=== PATIENT | male | born 1970 | race Two or more races ===

== ENCOUNTER 2023-06-10 08:00 | Outpatient (CLI) | payer OTHER, SELFPAY ==
--- NOTE | 2023-06-10 08:15 | CRLHL7_ITS ---
For Patients: As a result of the Century Cures Act, medical imaging exams and procedure reports are released immediately into your electronic medical record. You may view this report before your referring provider. If you have questions, please contact your health care provider. Indication: Left hip pain Procedure : Informed consent was obtained. The site was marked. Time-out was performed. The skin of the left hip was cleansed with ChloraPrep. A sterile drape was placed. 8 cc of 1 percent lidocaine was administered for superficial anesthesia. Subsequently a 22 gauge spinal needle was introduced into the left hip joint under intermittent fluoroscopic guidance. 7 cc 1 percent lidocaine and 2 cc 40 milligram/cc Depo-Medrol then placed into the left hip joint. The needle was removed and hemostasis achieved with direct pressure. A dressing was placed. The patient tolerated the procedure well without immediate complication. Total fluoroscopy time 22 seconds. Impression: Successful fluoroscopically guided left hip injection with 80 milligrams of Depo-Medrol. Dictated by Nelson Lares MD @ 06/10/2023 2:21:50 PM (Electronically Signed)
== END 2023-06-10 08:01 | disposition home or self-care (01) ==
LOC: RAD 08:01
PROVIDERS: PCP Family Medicine; Visit Provider Physician Assistant Surgical
DX: M25.552 Pain in left hip (principal); M16.12 Unilateral primary osteoarthritis, left hip
CPT/HCPCS: 20610; 77002; J1030; Q9966

== ENCOUNTER 2023-06-25 07:25 | Outpatient (CLI) | payer OTHER, SELFPAY | END 2023-06-25 07:26 | disposition home or self-care (01) | LOC: NFLDREF 07-02 14:15 | PROVIDERS: PCP Family Medicine; Referring Provider Family Medicine; Visit Provider Family Medicine | DX: Z00.00 Encounter for general adult medical examination without abnormal findings (principal); E11.9 Type 2 diabetes mellitus without complications; E78.1 Pure hyperglyceridemia; M16.12 Unilateral primary osteoarthritis, left hip; N52.9 Male erectile dysfunction, unspecified | CPT/HCPCS: 80053; 80061; 82043; 82570 ==

== ENCOUNTER 2023-10-06 15:43 | Outpatient (CLI) | payer OTHER, SELFPAY | END 2023-10-06 15:44 | disposition home or self-care (01) | LOC: NFLDREF 15:44 | PROVIDERS: PCP Family Medicine; Visit Provider Family Medicine | DX: Z01.818 Encounter for other preprocedural examination (principal) | CPT/HCPCS: 80048 ==

== ENCOUNTER 2023-10-14 05:57 | Day surgery (SDC) | payer OTHER, SELFPAY ==
[2023-10-14] VITALS (22 sets, daily range): BP systolic 127–157; BP diastolic 79–104; PULSE 80–115; RESP 16–20; TEMP 36.3–36.4; O2SAT 93–98; BMI 35.4
[2023-10-14] MEDS: SODIUM CHLORIDE 0.9 % (FLUSH) 10 ML SYRINGE IVF (06:45)
[2023-10-14] MEDS: LACTATED RINGERS 1000 ML 1,000 ML 100 ML IV ×2 (06:45→08:47)
[2023-10-14] MEDS: OXYCODONE (CR) 10 MG TAB.ER.12H PO (06:56)
[2023-10-14] MEDS: ACETAMINOPHEN 500 MG TABLET 1000 MG PO (06:56)
--- NOTE | 2023-10-14 06:59 | SUR.PREOP ---
TIME?OUT:?0659 PT/RN/MDA?VERIFICATION?OF?SURGICAL?SITE,?PROCEDURE,?AND?CONSENT OBTAINED?PRIOR?TO?INVASIVE?PROCEDURE.
[2023-10-14] MEDS: MIDAZOLAM HCL 1 MG/ML inj IVP (07:00)
[2023-10-14] MEDS: fentaNYL 100 MCG/2 ML inj IVP (07:00)
--- NOTE | 2023-10-14 07:18 | W.PM.H&PU ---
History & Physical Update History & Physical Update H&P Reviewed and patient assessed: No changes noted
--- NOTE | 2023-10-14 07:30 | CRLHL7_ITS ---
For Patients: As a result of the Cures Act, medical imaging exams and procedure reports are released immediately into your electronic medical record. You may view this report before your referring provider. If you have questions, please contact your health care provider. Indication: Hip replacement surgery Technique: AP hip fluoroscopic image. Fluoroscopy time 36.9 seconds. Findings/Impression: Hardware from a left total hip arthroplasty is in satisfactory position. Dictated by Nelson Lares MD @ 10/14/2023 10:22:17 AM (Electronically Signed)
[2023-10-14] MEDS: CEFAZOLIN 2 GM in 0.9 % SODIUM CHLORIDE Mini-bag 100 ML IVPB (07:56)
[2023-10-14] MEDS: TRANEXAMIC ACID 100 MG/ML INJ 1000 MG IV (07:57)
--- NOTE | 2023-10-14 09:22 | P.ORPRC_ITS ---
Procedure Note Date of procedure: 10/14/23 Procedure: PREOPERATIVE DIAGNOSIS: 1. Left hip osteoarthritis, severe, primary POSTOPERATIVE DIAGNOSIS: 1. Left hip osteoarthritis, severe, primary PROCEDURE: 1. Left total hip arthroplasty-anterior approach 2. 78062 - intraoperative fluoroscopy up to 1 hour. SURGEON: Theron Denton MD. PAPIER MACHE MOLDER: Jefry Argueta PA-C; Keya Torres PA-C - Of note, a skilled volunteer services assistant was critical for this case to aid in patient positioning, tissue retraction, limb manipulation/positioning, dislocation/relocation, patient safety, and closure. ANESTHESIA: General endotracheal anesthetic EBL: 300 mL IMPLANTS: DePuy J&J uncemented total hip [place] cup size 52, hole eliminator, +0 neutral liner Actis stem, high offset, size 6 +1 mm ceramic 32mm head. COMPLICATIONS: None evident INDICATIONS: The patient is a pleasant 52-year-old male who has experienced severe left hip pain and difficulty bearing weight. Workup included x-rays which revealed severe osteoarthrosis in the hip. Given the deformity, the dysfunction, and the pain, as well as the failure of nonoperative management, recommendation was made for surgery. FINDINGS: Full-thickness chondral loss diffusely throughout the femoral head. Osteophytes around the femoral head/neck junction and perimeter of the acetabulum. Small effusion upon entering the joint. DESCRIPTION OF PROCEDURE: Following a thorough discussion of risks, benefits, and alternatives consent was obtained and the left hip was marked. The patient was brought to the operating room and placed supine on the operating table. Induction of anesthesia was undertaken. 2 g IV Ancef and 1 g tranexamic acid was administered within 1 hr of incision preoperatively. Proper time-out was performed identifying proper patient, site, procedure. The operative extremity was prepped and draped in the appropriate sterile fashion using ChloraPrep after the patient was positioned on the [place] table with head in neutral alignment and all bony prominences well padded. C-arm fluoroscopic imaging was utilized to confirm proper pelvis rotation and position, and to get true AP films of both the contralateral left, and the affected left hip. This is for comparison. A longitudinal incision was made starting approximately 1 cm distal to the ASIS, and 3-4 cm lateral. The incision was extended distally aiming toward the lateral border the patella. Sharp incision through skin and bovie cautery through the subcutaneous tissue allowed identification of the TFL fascia. This was sharply divided, and the fascia bluntly released from the muscle fibers as we dissected medial. Upon coming to the medial border, we were able to retract the TFL laterally, and penetrated the deeper fascia and identify the crossing circumflex vessels. These were ligated/cauterized. The rectus was elevated from the capsule, and retractors placed laterally and medially along the femoral neck to help with visualization of the capsule. We then performed an inverted T capsulotomy. The capsule was tagged for later repair. Retractors were placed inside the capsule. The femoral neck was visualized after releasing medially down to the lesser trochanter, along the saddle laterally, and up onto the acetabulum. The femoral neck cut was made in line with our preoperative templating. The head was removed in a single piece, and sized. We turned our attention to acetabular preparation. Initially, the labrum was resected from around the perimeter, the pulvinar was excised, allowing us to visualize the false wall. We started the reaming with a 43 mm reamer. This was medialized down to the true wall. We then enlarged our reamers sequentially up to one size less than the selected cup size. We trialed at the same size and found it to have an excellent fit. The selected cup was then opened, inserted, and impacted in line with the goal of 40-45? of abduction, and 20-25? of anteversion. This was confirmed on C-arm fluoroscopic imaging to be in the appropriate/goal position. Once the cup was placed we placed a hole eliminator and a liner consistent with preop planning. Attention was turned to the femoral preparation. The limb was extended, externally rotated, and adducted. The posteromedial capsule was released, as retractors were placed allowing excellent access to the proximal femur. Initially a coin box inspector was followed by canal finder followed by various broac hes. We broached sequentially up to size noted above, found it to have excellent rotational control, and trialing various heads and necks, revealed that appropriate neck offset, and the above noted head size provided the greatest stability, and roman catholic of length, and offset. C-arm fluoroscopic imaging confirmed position of the stem, as well as leg lengths, which were compared with the pre procedure all fluoroscopic images. Trial implants were removed, the real femoral stem inserted, as was the ceramic head. After reducing, the leg was placed through range of motion and stability was confirmed anterior, posterior, and lateral. A 3 min Betadine soak was then performed, and thorough irrigation with normal saline followed. Closure of the capsule was performed with #1 PDS. Bleeding was confirmed to be controlled at this stage, and the TFL fascia was closed with #0 strata fix. Subcutaneous, and subcuticular closure was performed with 2-0 Vicryl and 4-0 Monocryl, respectively. Dressings were applied, and the patient was awoken from anesthesia and transferred the PACU in stable condition. A skilled volunteer services assistant was critical for this case to aid in patient positioning, tissue retraction, proximal femur exposure, limb manipulation/positioning, dislocation/relocation, patient safety, and closure. PLAN: 1. Weight bear as tolerated operative extremity. 2. 23 hr perioperative antibiotics. 3. Ice. 4. PT/OT consults for ambulation assistance/mobility education. 5. Social work consult for discharge planning. 6. DVT prophylaxis with at SCDs, Aneudy Humphreye, and Xarelto x5 days followed by aspirin for a total of 1 month..
--- NOTE | 2023-10-14 10:10 | CRLHL7_ITS ---
For Patients: As a result of the Cures Act, medical imaging exams and procedure reports are released immediately into your electronic medical record. You may view this report before your referring provider. If you have questions, please contact your health care provider. Indication: POST OP HIP Technique: AP hip centered pelvis and lateral view left hip Findings/Impression: Hardware from a left total hip arthroplasty is in satisfactory position. Bone alignment is normal. No sign of acute fracture. Postop changes are within normal limits. Dictated by Nelson Lares MD @ 10/14/2023 11:33:32 AM (Electronically Signed)
[2023-10-14] MEDS: fentaNYL 100 MCG/2 ML inj 50 MCG IVP ×2 (10:14→10:20)
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
--- NOTE | 2023-10-14 10:31 | W.ANESCHARGE ---
Anesthesia Charges Start Date/Time Anesthesia Start Date: 10/14/23 Anesthesia Start Time: 07:33 Stop Date/Time Anesthesia Stop Date: 10/14/23 Anesthesia Stop Time: 10:05
[2023-10-14] MEDS: OxyCODONE/APAP 5-325 TABLET PO (11:20)
--- NOTE | 2023-10-14 11:38 | P.NB_ITS ---
Nerve Block Nerve Block Time Seen by Provider: 07:05 Date Seen: 10/14/23 Type of block requested by surgeon for post-operative analgesia: RALPH/LFCN Side: left Time out performed: Yes Verification of patient name: Yes Verification of date of : Yes Site marking: site marked Name of person performing procedure: James Continuous monitoring Was continuous monitoring of O2 sat, B/P, platform power technician, recorded every 15 minutes?: Yes Procedure Checklist: sterile prep, needles and gloves Ultrasound guided. Images saved: Yes Medications given in 5ml increments after negative aspiration: Ropivicaine %: 0.5 mL: 30 Needle gauge: 20 Decadron (mg): 10 Precedex (mcg): 25 Patient tolerated procedure well: Yes Additional comments: Needle noted below psoas tendon needle noted adjacent to LFCN Block Charges Block Charge (with Pro Fee): Other Periph Nerve Block Use of Ultrasound Machine for Block: Yes- US Guidance/pain block
--- NOTE | 2023-10-14 11:39 | W.ANESCHARGE ---
Anesthesia Charges Start Date/Time Anesthesia Start Date: 10/14/23 Anesthesia Start Time: 07:33 Stop Date/Time Anesthesia Stop Date: 10/14/23 Anesthesia Stop Time: 10:05
--- NOTE | 2023-10-14 12:13 | SUR.PHASEII ---
Patient up at bedside with gait belt, walker, and stand by assist of 2. Patient independently used urinal. Patient stated it felt good to get up and stretch. Pain continuing to decrease down from 4/10.
--- NOTE | 2023-10-14 13:24 | SUR.PHASEII ---
OT therapy working with patient
--- NOTE | 2023-10-14 13:50 | SUR.PHASEII ---
patient to PT
== END 2023-10-14 14:20 | disposition home or self-care (01) ==
PROVIDERS: PCP Family Medicine; Visit Provider Orthopaedic Surgery Sports Medicine
PROC: (CPT 27130; principal; 2023-10-14 07:30)
DX: M16.12 Unilateral primary osteoarthritis, left hip (principal); G89.18 Other acute postprocedural pain
CPT/HCPCS: 27130; 01214; 36415; 64450; 73501; 76000; 76942; 82962; 86850; 86900; 86901; 97116; 97161; 97165; 97535; A9270; C1776; J0690; J1100; J1170; J1885; J2250; J2405; J2704; J2710; J3010; J7120

== ENCOUNTER 2023-10-28 08:00 | Outpatient (RCR) | payer OTHER, SELFPAY | END 2023-12-15 15:26 | disposition home or self-care (01) | PROVIDERS: PCP Family Medicine; Visit Provider Orthopaedic Surgery Sports Medicine | DX: M16.12 Unilateral primary osteoarthritis, left hip (principal); Z96.642 Presence of left artificial hip joint; M25.552 Pain in left hip; Z74.09 Other reduced mobility; M62.81 Muscle weakness (generalized); R26.9 Unspecified abnormalities of gait and mobility; Z51.89 Encounter for other specified aftercare | CPT/HCPCS: 97110; 97112; 97116; 97161; 97164; 97530; J1100; J2795 ==

== ENCOUNTER 2024-05-30 07:49 | Outpatient (CLI) | payer OTHER, SELFPAY ==
--- OUTSIDE RECORDS SUMMARY | 2024-05-30 14:56 | XMS_ITS | Clinical Summary ---
Author Organization [facility] [facility] Address [place], [place] [address] Care Team Providers Care Experimental Rocketsled Mechanic Name Role Phone Dipak Abdul MD Primary Care Provider Allergies Active Allergy Reactions Criticality Noted Date Comments Gemfibrozil Other - Describe In Comment Field 0 07/07/2008 Body aches Medications Medication Sig Dispensed Refills Start Date End Date Status multivitamin (MVI) tablet Take 1 tablet by mouth once daily. 0 12/31/2011 Active Active Problems Problem Noted Date Diagnosed Date Mixed hyperlipidemia Obesity, unspecified Hypertriglyceridemia Impaired glucose tolerance Immunizations Name Administration Dates Next Due Td (Age >=7 Years) 03/11/2000 Tdap 12/31/2011 Family History Medical History Relation Name Comments Cancer Father multiple myelom a, and possibly lymphoma Diabetes Father type 2 - strong hx on fathers side of family Cancer-colon Maternal Uncle / in 40's Heart Disease Neg. 1 no premature c ad Cancer-prostate Neg. 2 Relation Name Status Comments Father Alive Maternal Uncle Mother Alive Neg. 1 Neg. 2 Social History Tobacco Use Types Packs/Day Years Used Date Smoking Tobacco: Never Smokeless Tobacco: Never Tobacco Cessation:Counseling Given: No Alcohol Use Standard Drinks/Week Comments Yes 0 (1 standard drink = 0.6 oz pur e alcohol) rare PHQ-2 Answer Date Recorded PHQ-2 Score 0 12/12/2018 Sex and Gender Information Value Date Recorded Sex Assigned at Not on file Gender Identity Not on file Sexual Orientation Not on file Obstetrics History Last Filed Vital Signs Vital Sign Reading Time Taken Comments Blood Pressure 137/84 09/20/2018 11:45 AM RN ADMIT Pulse 63 09/20/2018 11:45 AM RN ADMIT Temperature 36.8 ??C (98.3 ??F) 09/20/2018 1 1:45 AM RN ADMIT Respiratory Rate - - Oxygen Saturation 97% 09/20/2018 11: 45 AM RN ADMIT Inhaled Oxygen Concentration - - Weight 120.7 kg (266 lb 3.2 oz) 018 11:45 AM RN ADMIT Height 180.3 cm (5' 11) 09/20/2018 11: 45 AM RN ADMIT Body Mass Index 37.13 09/20/2018 11:45 AM RN ADMIT Plan of Treatment Health Maintenance Due Date Last Done Comments HIV for age 15-65 12/21/1983 Hepatitis C screening for age 18-79 1986 Colonoscopy through age 75 2013 Zoster (shingles) series for age 50+ (1 of 2) 2018 Lipids for age 45-75 08/09/2019 08/09/2014, 08/09/2014, 09/05/2013, Additional history exists BMI (ht and wt on same day) for age 18+ 09/20/2019 09/20/2018 Depression screening for age 12+ 09/20/2019 09/20/2018 Tetanus booster 12/30/2021 12/31/2011, 03/11/2000 COVID-19 vaccine series (2022-24 season) 2023 Influenza for age 50-64 06/12/2024 Tdap Completed 12/31/2011 Pneumococcal series for age 6-64 Aged Out No longer eligible based on patient's age to complete this topic Procedures Procedure Name Priority Date/Time Associated Diagnosis Comments LIPID PANEL W REFLEX MEASURED LDL Routine 08/09/2014 9:08 AM CDT Mixed hyperlipidemia from Last 3 Months or Most Recently Relevant to Health Maintenance Results * (ABNORMAL) LIPID PANEL W REFLEX MEASURED LDL (08/09/2014 9:08 AM CDT) CHOLESTEROL,TOTAL 324(H) 100 - 199 mg/dL 08/09/2014 9:50 AM CDT [facility] TRIGLYCERIDES 642(H) <150 mg/dL 08/09/2014 9:50 AM CDT [facility] HDL CHOLESTEROL 28(L) >40 mg/dL 4 9:50 AM CDT [facility] NON-HDL CHOLESTEROL 296(H) <145 mg/dl 08/09/2014 9:50 AM CDT [facility] CHOL/HDL RATIO 11.57(H) <4.50 08/09/2014 9:50 AM CDT [facility] LDL CHOLESTEROL 4 9:50 AM CDT [facility] Comment:Invalid LDL when Tri g >400, reflexed to measured LDL PATIENT STATUS FASTING 08/09/2014 9:50 AM CDT [facility] Blood specimen (specimen) BLOOD SPECIMEN / Unknown Venipuncture / Unknown 08/09/2014 9:08 AM CDT 08/09/2014 9:08 AM CDT Dipak Abdul MD CHEMISTRY [facility] [address] [place] [address], from Last 3 Months or Most Recently Relevant to Health Maintenance Care Teams Experimental Rocketsled Mechanic Relationship Specialty Start Date End Date Dipak Abdul MD [address] [place] [address] PCP - General 08/14/06
== END 2024-05-30 07:50 | disposition home or self-care (01) ==
LOC: NFLDREF 14:55
PROVIDERS: PCP Family Medicine; Referring Provider Family Medicine; Visit Provider Family Medicine
DX: E78.1 Pure hyperglyceridemia (principal); E11.9 Type 2 diabetes mellitus without complications
CPT/HCPCS: 80053; 80061

== ENCOUNTER 2024-06-07 08:45 | Outpatient (CLI) | payer OTHER, SELFPAY ==
--- OUTSIDE RECORDS SUMMARY | 2024-06-07 08:49 | XMS_ITS | Clinical Summary ---
Author Organization [employer] [facility] Address [place], [place] [address] Care Team Providers Care Leadership Development Manager Name Role Phone Dipak Abdul MD Primary [...] Comments Blood Pressure 137/84 09/20/2018 11:45 AM CORRECTIONAL CASE RECORDS SUPERVISOR Pulse 63 09/20/2018 11:45 AM CORRECTIONAL CASE RECORDS SUPERVISOR Temperature 36.8 ??C (98.3 ??F) 09/20/2018 1 1:45 AM CORRECTIONAL CASE RECORDS SUPERVISOR Respiratory Rate - - Oxygen Saturation 97% 09/20/2018 11: 45 AM CORRECTIONAL CASE RECORDS SUPERVISOR Inhaled Oxygen Concentration - - Weight 120.7 kg (266 lb 3.2 oz) 018 11:45 AM CORRECTIONAL CASE RECORDS SUPERVISOR Height 180.3 cm (5' 11) 09/20/2018 11: 45 AM CORRECTIONAL CASE RECORDS SUPERVISOR Body Mass Index 37.13 09/20/2018 11:45 AM CORRECTIONAL CASE RECORDS SUPERVISOR Plan of Treatment Health Maintenance Due Date [...] - 199 mg/dL 08/09/2014 9:50 AM CDT [facility] TRIGLYCERIDES 642(H) <150 mg/dL 08/09/2014 9:50 AM CDT [facility] HDL CHOLESTEROL 28(L) >40 mg/dL 4 9:50 AM CDT [facility] NON-HDL CHOLESTEROL 296(H) <145 mg/dl 08/09/2014 9:50 AM CDT [facility] CHOL/HDL RATIO 11.57(H) <4.50 08/09/2014 9:50 AM CDT [facility] LDL CHOLESTEROL 4 9:50 AM CDT [facility] Comment:Invalid LDL when Tri g >400, reflexed to measured LDL PATIENT STATUS FASTING 08/09/2014 9:50 AM CDT [facility] Blood specimen (specimen) BLOOD SPECIMEN / Unknown Venipuncture / Unknown 08/09/2014 9:08 AM CDT 08/09/2014 9:08 AM CDT Dipak Abdul MD CHEMISTRY [facility] [address] [place] [address], from Last 3 Months or Most Recently Relevant to Health Maintenance Care Teams Leadership Development Manager Relationship Specialty Start Date End Date Dipak Abdul MD [address] [place] [address] PCP - General 08/14/06
--- NOTE | 2024-06-07 10:00 | W.ANESCHARGE ---
Anesthesia Charges Start Date/Time Anesthesia Start Date: 06/07/24 Anesthesia Start Time: 09:21 Stop Date/Time Anesthesia Stop Date: 06/07/24 Anesthesia Stop Time: 09:58
== END 2024-06-07 08:46 | disposition home or self-care (01) ==
LOC: OP CLINIC 08:46
PROVIDERS: PCP Family Medicine; Visit Provider Surgery
DX: Z86.010 Personal history of colon polyps (principal); K57.30 Diverticulosis of large intestine without perforation or abscess without bleeding; Z80.0 Family history of malignant neoplasm of digestive organs
CPT/HCPCS: 00811; 45378; J2704

== ENCOUNTER 2024-12-28 07:04 | Outpatient (CLI) | payer OTHER, SELFPAY ==
--- NOTE | 2024-12-28 07:15 | MR_ITS ---
[facility] [address] [facility] [address] Phone:?[phone] Fax:?[phone] Referring Physician Information: Theron Denton M.D. [address] [facility] [address] Phone:?[phone] Fax:?[phone] Patient:Lyric Montano D.O.B:?1970 Sex:?Male Phone:?[phone] [facility] MRN:?[id number] Exam Date:?12/28/2024 EXAM: MRI of the LEFT SHOULDER, without contrast CLINICAL: Evaluate for rotator cuff tear. COMPARISONS: X-rays dated 12/20/2024. TECHNICAL: Multiplanar multisequence MRI of the left shoulder was obtained. SEDATION: None. CONTRAST: None. FINDINGS: Rotator cuff: Supraspinatus/Infraspinatus: There is full-thickness tearing throughout the distal supraspinatus tendon extending into the anterior infraspinatus tendon with retraction of torn tendon fibers to the level of the glenohumeral joint. Advanced tendinosis and superimposed partial tearing involves the remainder of the distal infraspinatus tendon. Mild fatty infiltration/atrophy of the supraspinatus muscle. No significant fatty atrophy of the infraspinatus muscle. Teres minor: No tendinosis, tear or atrophy. Subscapularis: Mild tendinosis of the distal tendon without significant tendon tear. No fatty atrophy of the muscle. Bursae: Subacromial-subdeltoid: Increased bursal fluid likely secondary to full- thickness rotator cuff tendon tearing. Subcoracoid: No significant bursal fluid. Coracoacromial arch: Acromion morphology: Type II. No os acromiale. Acromiohumeral space: Markedly narrowed with superior humeral head migration. Coracohumeral space: Within normal limits. Biceps tendon, long head: Intraarticular and extraarticular segments intact without rupture, tendinopathy or displacement. Glenohumeral joint: Small volume of glenohumeral joint fluid is present. Articular cartilage: No chondral defects identified. Capsule: No evidence of capsular thickening or injury. Labrum: There is attenuation and tearing of the superior and posterior superior labrum as seen on coronal series 5 image 13-16. No additional discrete labral tear identified. No perilabral cyst identified. Bones: Heterogenous chondroid lesion is seen to involve the proximal humeral metaphysis measuring approximately 16 mm in cranial caudal dimension likely reflective of an enchondroma. No evidence of adjacent bone marrow edema or aggressive features. No evidence of fracture. Acromioclavicular joint: Moderate changes of arthrosis. No AC joint widening. IMPRESSION: 1. Full-thickness tearing throughout the distal supraspinatus tendon extending into the anterior distal infraspinatus tendon with retraction of torn tendon fibers to the level of the glenohumeral joint. Advanced tendinosis with superimposed partial tearing of the remainder of the distal infraspinatus tendon. There is mild fatty infiltration/atrophy of the supraspinatus muscle. 2. Mild tendinosis of the subscapularis tendon. 3. Attenuation and tearing of the superior and posterior superior labrum. 4. Moderate AC joint arthrosis. 5. Chondroid lesion within the proximal humeral metaphysis likely reflective of an enchondroma. JCZ Electronically signed on 12/28/2024 2:27:00 PM by Sancho Shields D.O.
== END 2024-12-28 07:05 | disposition home or self-care (01) ==
LOC: MRI 07:05
PROVIDERS: PCP Family Medicine; Visit Provider Orthopaedic Surgery Sports Medicine
DX: M19.012 Primary osteoarthritis, left shoulder (principal); S43.432A Superior glenoid labrum lesion of left shoulder, initial encounter; S46.812A Strain of other muscles, fascia and tendons at shoulder and upper arm level, left arm, initial encounter; S46.012A Strain of muscle(s) and tendon(s) of the rotator cuff of left shoulder, initial encounter
CPT/HCPCS: 73221

== ENCOUNTER 2025-01-25 06:08 | Day surgery (SDC) | payer OTHER, SELFPAY ==
[2025-01-25] VITALS (12 sets, daily range): BP systolic 123–172; BP diastolic 65–107; PULSE 52–89; RESP 15–20; TEMP 36.1–36.8; O2SAT 92–97; BMI 35.4
[2025-01-25] MEDS: SODIUM CHLORIDE 0.9 % (FLUSH) 10 ML SYRINGE IVF (06:50)
[2025-01-25] MEDS: LACTATED RINGERS 1000 ML 1,000 ML 100 ML IV (06:51)
--- NOTE | 2025-01-25 06:59 | W.PM.H&PU ---
History & Physical Update History & Physical Update H&P Reviewed and patient assessed: No changes noted
[2025-01-25] MEDS: fentaNYL 100 MCG/2 ML inj IVP (07:08)
[2025-01-25] MEDS: MIDAZOLAM HCL 1 MG/ML inj IVP (07:08)
--- NOTE | 2025-01-25 07:14 | SUR.PREOP ---
TIME?OUT:?704, left shoulder PT/RN/MDA?VERIFICATION?OF?SURGICAL?SITE,?PROCEDURE,?AND?CONSENT OBTAINED?PRIOR?TO?INVASIVE?PROCEDURE.
[2025-01-25] MEDS: CEFAZOLIN 2 GM in 0.9 % SODIUM CHLORIDE Mini-bag 100 ML IVPB (07:35)
[2025-01-25] MEDS: EPINEPHrine 1 MG in SODIUM CHLORIDE IRRIG SOLUTION 3,000 ML 3001 MG IRRIGATION ×10 (07:52→09:35)
--- NOTE | 2025-01-25 07:57 | SUR.OPER ---
PATIENT QUESTIONS ANSWERED SATISFACTORILY PREOPERATIVELY. PATIENT BROUGHT TO OR #2 PER CART FOLLOWING THE BLOCK. Patient positioned supine on OR #2 bed for the intubation.? Perioperative team wrapped the?right arm in a neutral position on the pt. abdomen with the drawsheet.? Left arm elevated on an IV pole in a padded strap. Final approval of positioning by surgeon. CONTINUOUS IRRIGATION OF THE LEFT SHOULDER WITH MIXTURE OF 3000 NACL AND 1mg OF EPINEPHRINE DURING PROCEDURE.
[2025-01-25] MEDS: LACTATED RINGERS 500 ML 500 ML 125 ML IV (09:00)
--- NOTE | 2025-01-25 09:47 | P.ANES_ITS ---
Anesthesia Charges Start Date/Time Anesthesia Start Date: 01/25/25 Anesthesia Start Time: 07:15 Stop Date/Time Anesthesia Stop Date: 01/25/25 Anesthesia Stop Time: 10:28 Coding CPT Codes CPT Codes: ANESTH SURGERY OF SHOULDER - 18377 ([id number]) P2 - PATIENT W/MILD SYST DISEASE, QK - TRANSPORTATION SPECIALIST 2-4 CNCRNT ANES PROC, QX - POULTRY GRADER SVC W/ MD MED DIRECTION
--- NOTE | 2025-01-25 09:47 | W.ANESCHARGE ---
Anesthesia Charges Start Date/Time Anesthesia Start Date: 01/25/25 Anesthesia Start Time: 07:15 Stop Date/Time Anesthesia Stop Date: 01/25/25 Anesthesia Stop Time: 10:28 Coding CPT Codes CPT Codes: ANESTH SURGERY OF SHOULDER - 45903 ([id number]) P2 - PATIENT W/MILD SYST DISEASE, QK - AIRLINE FLIGHT ATTENDANT 2-4 CNCRNT ANES PROC, QX - ORE DIGGER SVC W/ MD MED DIRECTION
--- NOTE | 2025-01-25 09:47 | W.PM.NB ---
Nerve Block Nerve Block Time Seen by Provider: 07:12 Date Seen: 01/25/25 Type of block requested by surgeon for post-operative analgesia: supraclavicular Side: left Time out performed: Yes Verification of patient name: Yes Verification of date of : Yes Site marking: site marked Name of person performing procedure: James Continuous monitoring Was continuous monitoring of O2 sat, B/P, monitoring analyst, recorded every 15 minutes?: Yes Procedure Checklist: sterile prep, needles and gloves Ultrasound guided. Images saved: Yes Medications given in 5ml increments after negative aspiration: Ropivicaine %: 0.5 mL: 20 Needle gauge: 22 Precedex (mcg): 25 Patient tolerated procedure well: Yes Block Charges Block Charge (with Pro Fee): Brachial Plexus Use of Ultrasound Machine for Block: Yes- US Guidance/pain block
--- NOTE | 2025-01-25 10:12 | P.ORPRC_ITS ---
Procedure Note Date of procedure: 01/25/25 Procedure: PREOPERATIVE DIAGNOSES: 1. Left shoulder rotator cuff tear - full-thickness supraspinatus, infraspinatus, and likely upper border subscapularis 2. Left shoulder AC joint arthrosis, primary, moderate-severe 3. Left shoulder labral tearing 4. Left shoulder subacromial impingement syndrome. POSTOPERATIVE DIAGNOSES: 1. Left shoulder rotator cuff tear - massive 3 tendon tear including full- thickness supraspinatus, infraspinatus, and upper border subscapularis 2. Left shoulder AC joint arthrosis, primary, moderate-severe 3. Left shoulder labral tearing 4. Left shoulder subacromial impingement syndrome. NAME OF OPERATION: 1. Left shoulder arthroscopic rotator cuff repair - modifier 22. Given the massive 3 tendon involvement of this rotator cuff tear with significant retraction medial to the glenoid, this required extensive tissue mobilization to improve its excursion including extensive subacromial decompression and bursectomy. In addition, it required more anchors than typical, more sutures than typical, and 33% at a time and difficulty for this case which also warranted multiple assistants. 2. Left shoulder arthroscopic distal clavicle excision 3. Left shoulder arthroscopic limited glenohumeral debridement 4. Left shoulder arthroscopic subacromial decompression/partial acromioplasty. SURGEON: Theron Denton MD [employer]: Jefry Argueta PA-C; Rebekah Vasquez, student. Of note, multiple assistants were critical for this case to aide in patient positioning, suture manipulation, arm positioning, instrument positioning, and closure. ANESTHESIA: General plus preoperative supraclavicular block. EBL: 25 mL IMPLANTS: Arthrex 4.75 mm BioComposite SwiveLock suture anchor (x2) Arthrex 5.5 mm BioComposite SwiveLock suture anchor (x2); Arthrex 2.6 mm standard FiberTak RC (x1); Arthrex 5.5 mm BioComposite corkscrew suture anchor (x1) COMPLICATIONS: None evident INDICATIONS: The patient is a pleasant, 54-year-old male who has experienced left shoulder pain that has been increasing in recent time. Physical exam and imaging were consistent with a rotator cuff tear. Given their findings, as well as the weakness and pain, and inadequate response to nonoperative management, recommendation was made for surgery. FINDINGS: Exam under anesthesia revealed stable shoulder with excellent range of motion. The diagnostic arthroscopy revealed relatively healthy articular cartilage on the glenohumeral joint. The Subscapularis tendon was torn from its upper border with mild-moderate retraction. The long head of the biceps tendon was intact without significant hemorrhagic tissue or partial tearing. The superior rotator cuff tendon was found to be torn full-thickness through entire supraspinatus with retraction medial to the he glenoid. The infraspinatus was also torn and retracted substantially. The superior rotator cuff at following posteriorly in addition to medially. The labrum was degeneratively frayed in the anterior and superior aspects. No loose bodies were identified within the pouch or subscapularis recess. PROCEDURE: Following a thorough discussion of risks, benefits, and alternatives, consent was obtained and the left shoulder was marked. The patient was brought to the operating room and placed supine on the operating table. Induction of anesthesia was completed after preoperative supraclavicular block was administered in preop holding. Appropriate time out was performed identifying proper patient, site, and procedure. 2 g IV Ancef was administered within 1 hour of incision preoperatively. The left upper extremity was prepped and draped in the appropriate sterile fashion using ChloraPrep prep. This was after the patient was positioned in the beach chair with their head in neutral alignment and all bony prominences well padded. The shoulder was insufflated with 20mL of normal saline via an 18g spinal needle from a posterior approach. An 11 blade skin incision allowed a blunt trochar to be inserted and diagnostic arthroscopy to be performed with the findings as noted above. An anterior portal was established with an outside in technique. This allowed the probe to be inserted and confirm the diagnostic arthroscopic findings. The shaver was then inserted and allowed debridement of the anterior and superior labrum. Following this, the upper border subscapularis was repaired after debriding the lesser tuberosity with the shaver and [place] cautery. Subscapularis was captured in horizontal mattress fashion with a fiber tape suture. The tails were brought to a single anchor in the lesser tuberosity with excellent reapproximation of the subscap tendon and good excursion/tension. Thereafter, the subacromial space was entered. Here, a complete bursectomy and partial acromioplasty/subacromial decompression was performed with a combination of radiofrequency ablator, the shaver, and a 5.5 mm bur. Additionally, distal clavicle excision was performed with the bur. 8 mm of distal clavicle was resected based on the width of our bur. Further inspection of the supraspinatus and infraspinatus rotator cuff was performed. This identified the tear as noted above. The margins of the tear were debrided, and the greater tuberosity was debrided with a combination of the [place] cautery, shaver, and bur on reverse setting. After gentle decortication, we manipulated the torn rotator cuff tissue to better understand where its repair site should be. It essentially was a L-shaped type tear. This warranted a SutureLasso to pass the sutures through the far posterior medial location. 3 anchors were chosen across the medial row including a far posterior medial 4.75 mm BioComposite SwiveLock. The middle medial row anchor was a 2.4 mm standard FiberTak RC. The far anterior medial row anchor was a 5.5 mm corkscrew anchor. The tails were passed independently and the tape sutures were brought to a lateral row and the FiberWire and a couple suture tapes were 1st tied to help with reapproximating the tissue to the medial row of the greater tuberosity and to take tension off the tissue. Thereafter, 2 lateral anchors were utilized and multiple suture tails from the medial row were Kelsey crossed and passed to help lay down in a broad footprint against the greater tuberosity. The rotator cuff showed excellent reapproximation of the greater tuberosity with good security upon probing. Prior to anchor laundry route driver removal, the eyelet sutures were tugged on for each anchor and found that the anchor had excellent stability within the bone. The shoulder was placed through range of motion and found to be stable. The rotator cuff was re-probed and found to be stable. Instruments were removed. Excess fluid was drained, closure performed with 4-0 Monocryl and Steri-Strips. Dressings were applied. Sling was applied. The patient was awoken from anesthesia and transferred to the PACU in stable condition. A skilled sales and marketing assistant was critical for this case to aid in patient positioning, limb positioning, skill to manipulate arthroscopic instruments and camera, suture management, patient safety, and closure. * of note, 33% at a time and difficulty for this case due to the massive tear nature, substantial retraction, and the adhesions of the torn rotator cuff tissue to the surrounding tissue requiring increased tissue dissection to improve the rotator cuff mobility. PLAN: 1. Elbow, forearm, wrist and digit range of motion of operative extremity as tolerated. 2. Encouraged ice. 3. Oxycodone for pain as needed. 4. Sling at all times except for ROM and showering. 5. Follow up with PA visit in 1-2 weeks for wound check. Initiate physical therapy following that visit for passive range of motion. Initiate active assisted range of motion at 4weeks. Due to the massive tear size, the rehab process will likely be longer for this patient. May do pendulums now.
--- NOTE | 2025-01-25 10:47 | P.ANES_ITS ---
Anesthesia Charges Start Date/Time Anesthesia Start Date: 01/25/25 Anesthesia Start Time: 07:15 Stop Date/Time Anesthesia Stop Date: 01/25/25 Anesthesia Stop Time: 10:28 Coding CPT Codes CPT Codes: ANESTH SURGERY OF SHOULDER - 29871 ([id number]) P2 - PATIENT W/MILD SYST DISEASE, QK - ORDER DISPATCHER 2-4 CNCRNT ANES PROC, QX - ESCORT BLIND SVC W/ MD MED DIRECTION
--- NOTE | 2025-01-25 10:47 | W.ANESCHARGE ---
Anesthesia Charges Start Date/Time Anesthesia Start Date: 01/25/25 Anesthesia Start Time: 07:15 Stop Date/Time Anesthesia Stop Date: 01/25/25 Anesthesia Stop Time: 10:28 Coding CPT Codes CPT Codes: ANESTH SURGERY OF SHOULDER - 49475 ([id number]) P2 - PATIENT W/MILD SYST DISEASE, QK - TRAIN INSPECTOR 2-4 CNCRNT ANES PROC, QX - CATH LABORATORY TECHNICIAN SVC W/ MD MED DIRECTION
== END 2025-01-25 12:13 | disposition home or self-care (01) ==
PROVIDERS: PCP Family Medicine; Visit Provider Orthopaedic Surgery Sports Medicine
PROC: (CPT 29805; principal; 2025-01-25 07:15)
DX: M75.122 Complete rotator cuff tear or rupture of left shoulder, not specified as traumatic (principal); M19.012 Primary osteoarthritis, left shoulder; S43.432A Superior glenoid labrum lesion of left shoulder, initial encounter; M75.42 Impingement syndrome of left shoulder; G89.18 Other acute postprocedural pain; E11.9 Type 2 diabetes mellitus without complications; Z79.84 Long term (current) use of oral hypoglycemic drugs
CPT/HCPCS: 29827; 29826; 29824; 29822; 01630; 64415; 76942; 82962; C1713; J0171; J0330; J0690; J1100; J2250; J2371; J2405; J2704; J2710; J2795; J3010; J7120; L3670

== ENCOUNTER 2025-07-11 07:35 | Outpatient (CLI) | payer OTHER, SELFPAY | END 2025-07-11 07:36 | disposition home or self-care (01) | LOC: NFLDREF 07-12 10:19 | PROVIDERS: PCP Family Medicine; Referring Provider Family Medicine; Visit Provider Family Medicine | DX: E11.9 Type 2 diabetes mellitus without complications (principal) | CPT/HCPCS: 80053; 80061; 82043; 82570 ==